=== PATIENT | female | born 1935 | race Caucasian/White ===

== ENCOUNTER 2016-08-30 13:29 | Outpatient (CLI) | payer OTHER ==
--- NOTE | 2016-08-30 16:56 | DIAGNOSTIC IMAGING REPORT ---
PROCEDURE: CT ABD/PELVIS WITH CONTRAST CLINICAL INDICATION: Lower abdominal pain, initial encounter TECHNIQUE: 95 ml of Isovue 370 were injected intravenously and axial images were obtained of the entire abdomen and pelvis with sagittal and coronal reformations. COMPARISON: None. FINDINGS: ABDOMEN: Lung base are clear. Heart size is normal. Cholecystectomy. Liver, pancreas, spleen (calcified granulomas and splenule), adrenal glands and right kidney are normal. Moderate atherosclerosis of the aorta. Mild sigmoid diverticulosis of the descending colon. Small hiatal hernia PELVIS: Moderately severe sigmoid diverticulosis with a 4 x 3.5 cm air containing thick-walled mass adjacent and superior to the mid sigmoid colon suggestive of a pericolonic abscess . There is an additional 2 cm inflammatory mass posterior to the mid sigmoid colon suggestive of additional abscess which may communicate with the above described abscess. This results in moderate dilation of the proximal left ureter and left hydronephrosis. Normal appendix. Hysterectomy. Normal adnexa and bladder. Moderate degenerative changes of the spine. IMPRESSION: 1. Moderately severe sigmoid diverticulosis with a 4 x 3.5 cm thick-walled air-filled inflammatory mass superior to the mid sigmoid colon, which may communicate with a 2 cm collection posterior to the mid sigmoid colon, most consistent with an abscess, resulting in moderate left hydroureteronephrosis. A necrotic mass is less likely. Recommend follow-up. 2. Small hiatal hernia 3. Cholecystectomy and hysterectomy 4. Results discussed with Dr. White All CT scans at this facility use dose modulation, iterative reconstruction, and/or weight-based dosing when appropriate to reduce radiation dose to as low as reasonably achievable.
== END 2016-08-30 23:00 ==
LOC: CT SRH 13:29
DX: K57.32 Diverticulitis of large intestine without perforation or abscess without bleeding (principal)